=== PATIENT | male | born 1985 | race American Indian/Alaskan Native ===

== ENCOUNTER 2016-03-30 02:04 | Emergency (ER) | payer OTHER ==
[2016-03-30 03:10] VITALS: BP 120/83
[2016-03-30 03:44] LABS: Basophils % (Auto) 0.5 % (0.0-1.8); Eosinophils % (Auto) 1.9 % (0.0-4.3); Hematocrit 43.8 % (35.5-45.6); Hemoglobin 14.4 gm/dl (11.8-15.2); Mean Corpuscular HGB Conc 33 % (32-34); Mean Corpuscular Hemoglobin 27 pg (28-32); Mean Corpuscular Volume 84 fl (84-94); Platelet Count 234 K/mm3 (140-440); Red Blood Count 5.25 M/mm3 (3.65-5.03); Red Cell Distribution Width 13.4 % (13.2-15.2); White Blood Count 9.5 K/mm3 (4.5-11.0)
[2016-03-30 03:55] LABS: Blood Urea Nitrogen 12 mg/dL (9-20); Calcium 9.2 mg/dL (8.4-10.2); Carbon Dioxide 26 mmol/L (22-30); Chloride 101.5 mmol/L (98-107); Glucose 110 mg/dL (75-100); Potassium 4.5 mmol/L (3.6-5.0); Sodium 138 mmol/L (137-145)
[2016-03-30 04:01] LABS: Anion Gap 15 mmol/L
[2016-03-30 04:44] LABS: Bilirubin,Urine NEG (Negative); Blood,Urine NEG (Negative); Ketones,Urine NEG (Negative); Leukocyte Esterase,Urine NEG (Negative); Mucus,Urine FEW /HPF; Nitrite,Urine NEG (Negative); Protein,Urine <15 mg/dL mg/dL (Negative); Urobilinogen,Urine < 2.0 mg/dL (<2.0)
--- NOTE | 2016-03-30 19:47 | ED Elopement Review ---
ED Pt Elopement review - Results review Lab results: Laboratory Tests 03/30/16 03/30/16 03/30/16 03:20 03:20 04:10 WBC 9.5 RBC 5.25 H Hgb 14.4 Hct 43.8 MCV 84 MCH 27 L MCHC 33 RDW 13.4 Plt Count 234 Lymph % (Auto) 10.7 L Mcdonald % (Auto) 6.1 Eos % (Auto) 1.9 Baso % (Auto) 0.5 Lymph # 1.0 L Mcdonald # 0.6 Eos # 0.2 Baso # 0.0 Seg Neutrophils % 80.8 H Seg Neutrophils # 7.6 Sodium 138 Potassium 4.5 Chloride 101.5 Carbon Dioxide 26 Anion Gap 15 BUN 12 Creatinine 1.1 Estimated GFR > 60 BUN/Creatinine Ratio 10.90 Glucose 110 H Calcium 9.2 Urine Color Yellow Urine Turbidity Clear Urine pH 5.0 Ur Specific [place] 1.027 Urine Protein <15 mg/dl Urine Glucose (UA) Neg Urine Ketones Neg Urine Blood Neg Urine Nitrite Neg Urine Bilirubin Neg Urine Urobilinogen < 2.0 Ur Leukocyte Esterase Neg Urine WBC (Auto) 1.0 Urine RBC (Auto) 1.0 U Epithel Cells (Auto) < 1.0 Urine Mucus Few - Call Back decision Pt Call Back Decision: Pt to F/U with PMD (abnl vitals, pmd f/u)
== END 2016-03-30 03:21 | disposition left against medical advice (07) ==
LOC: ED 02:04
DX: R53.1 Weakness (principal); R20.2 Paresthesia of skin; D64.9 Anemia, unspecified; Z53.21 Procedure and treatment not carried out due to patient leaving prior to being seen by health care provider
CPT/HCPCS: 36415; 80048; 81001; 85025; 87076; 87086; 87186